=== PATIENT | female | born 2005 | race Caucasian/White ===

== ENCOUNTER 2024-01-23 15:30 | Outpatient (CLI) | payer OTHER, SELFPAY ==
[2024-01-23 16:16] LABS: Beta HCG Quantitative < 2.39 mIU/ML
== END 2024-01-23 15:31 | disposition home or self-care (01) ==
LOC: ANHLAB 15:33
PROVIDERS: Visit Provider Obstetrics & Gynecology
DX: Z30.9 Encounter for contraceptive management, unspecified (principal)
CPT/HCPCS: 36415; 84702